=== PATIENT | male | born 1945 | race Two or more races ===

== ENCOUNTER 2022-03-01 14:00 | Outpatient (CLI) | payer OTHER | END 2022-03-01 16:00 | disposition home or self-care (01) | LOC: ASH CLINIC 14:00 | DX: U07.1 COVID-19 (principal) ==

== ENCOUNTER 2022-11-12 23:40 | Emergency (ER) | payer OTHER ==
[~2022-11-12] VITALS: Ht 162.6 cm; Wt 83.9 kg
[2022-11-13] MEDS ORDERED: BUDESONIDE0.5 MG/2 M IH (05:40)
[2022-11-13] MEDS ORDERED: ZYNCOF 20-400120 ML PO (05:40)
[2022-11-13] MEDS ORDERED: XOPENEX0.63 MG/3 IH (05:40)
== END 2022-11-13 05:48 ==
LOC: ER 23:40
DX: J10.1 Influenza due to other identified influenza virus with other respiratory manifestations (principal); R06.02 Shortness of breath; E11.9 Type 2 diabetes mellitus without complications; Z20.822 Contact with and (suspected) exposure to COVID-19